=== PATIENT | female | born 1995 | race Caucasian/White ===

== ENCOUNTER 2019-08-19 16:55 | Emergency (ER) | payer MEDICAID ==
[~2019-08-19] VITALS: Ht 165.1 cm; Wt 68.0 kg
--- NOTE | 2019-08-19 16:55 | NUR ---
Placed in room 08 . Placed on personnel monitor, blood pressure machine and pulse oximeter. To gown for exam. Side rails up.
--- NOTE | 2019-08-19 16:57 | NUR ---
Pt AAOx4 ambulated into ED c/o chest tightness, nausea, and difficulty breathing x 4 hours while sitting down and working online. Pt denies v/d/dysuria/blurred vision. Skin pink dry and warm, breathing even and unlabored, speaking in full sentences. No other injuries/complaitns per pt/noted. Will continue to monitor.
[2019-08-19 16:59] VITALS: BP_SYST 136
--- NOTE | 2019-08-19 17:15 | NUR ---
ER EMILY Hopkins examining patient.
[2019-08-19] MEDS ORDERED: IPRATROPIUM/ALBUTEROL SULFATE 3 ML AMPUL.NEB (DUONEB) INH ONE (17:30)
--- NOTE | 2019-08-19 17:30 | NUR ---
Respiratory at bedside for breathing tx
--- NOTE | 2019-08-19 17:50 | NUR ---
Pt ambulated to radiology in stable condition
--- NOTE | 2019-08-19 17:54 | NUR ---
Note harshad in EDM - 08/19/19 at 1755 by [email or web address] Pt reports she is full code. Pt is unsure of regular medications. Family will bring medications from home.
--- NOTE | 2019-08-19 17:59 | NUR ---
Pt ambulted back to bed from radiology
[2019-08-19 18:12] LABS: BARBITURATE, URINE NEGATIVE (NEG <=200)
[2019-08-19 18:13] LABS: BENZODIAZEPINE, URINE NEGATIVE (NEG <=150); CANNABINOID, URINE NEGATIVE (NEG <=50); COCAINE, URINE NEGATIVE (NEG <=150); METHAMPHETAMINES SCREEN,URINE NEGATIVE (NEG <=500); OPIATE, URINE NEGATIVE (NEG <=100); PHENCYCLIDINE SCREEN,URINE NEGATIVE (NEG <=25); UR TRICYCLIC ANTIDEPRESSANTS NEGATIVE (NEG <=300); URINE AMPHETAMINE NEGATIVE (NEG <=500); URINE METHADONE NEGATIVE (NEG <=200); URINE OXYCODONE SCREEN NEGATIVE (NEG <=100); URINE PROPOXYPHENE SCREEN NEGATIVE (NEG <=300)
[2019-08-19 18:47] LABS: BASOPHILS % (AUTO) 0.6 % (0.0-2.0); EOSINOPHILS # (AUTO) 0.1 K/uL (0.0-0.4); EOSINOPHILS % (AUTO) 1.4 % (0.0-4.0); HEMOGLOBIN 12.7 g/dL (12.0-16.0); LYMPHOCYTES # (AUTO) 1.8 K/uL (1.0-5.5); LYMPHOCYTES % (AUTO) 23.8 % (20.5-51.5); MEAN CORPUSCULAR HEMOGLOBIN 31 pg (27-31); MEAN CORPUSCULAR HGB CONC 33 % (32-36); MEAN CORPUSCULAR VOLUME 96 fL (79.0-98.0); MONOCYTES # (AUTO) 0.6 K/uL (0.0-1.0); MONOCYTES % (AUTO) 8.3 % (1.7-9.3); NEUTROPHILS # (AUTO) 4.9 K/uL (1.8-7.7); NEUTROPHILS % (AUTO) 65.9 % (40.0-70.0); PLATELET COUNT (AUTO) 240 K/uL (130-430); RED BLOOD CELL COUNT(AUTO) 4.06 MIL/uL (4.2-6.2); RED CELL DISTRIBUTION WIDTH 13.2 % (9.0-15.0); WHITE BLOOD COUNT (AUTO) 7.5 K/uL (4.8-10.8)
--- NOTE | 2019-08-19 18:50 | NUR ---
Pt resting comfortably in bed with no signs of distress.
[2019-08-19 18:55] LABS: CALCIUM 9.2 mg/dL (8.4-11.0); CREATININE 0.88 mg/dL (0.55-1.30); POTASSIUM 4.4 mmol/L (3.5-5.1)
[2019-08-19 19:26] VITALS: BP_SYST 136
--- NOTE | 2019-08-19 19:26 | NUR ---
Patient given written and verbal discharge instructions and verbalizes understanding. ER VAMP STITCHER Kellie discussed with patient the results and treatment provided. Patient in stable condition. ID arm band removed. Rx of Motrin, Albuterol given. Patient educated on pain management and to follow up with PMD. Pain Scale 0. Opportunity for questions provided and answered. Medication side effect fact sheet provided.
== END 2019-08-19 19:26 | disposition home or self-care (01) ==
LOC: SED 16:55
DX: R07.89 Other chest pain (principal); R00.2 Palpitations; R03.0 Elevated blood-pressure reading, without diagnosis of hypertension; Z88.1 Allergy status to other antibiotic agents
CPT/HCPCS: 36415; 71045; 80048; 80307; 81025; 84484; 85025; 93005; 94640; 99285